=== PATIENT | female | born 1975 | race Caucasian/White ===

== ENCOUNTER 2021-04-13 10:15 | Emergency (ER) | payer OTHER ==
[~2021-04-13] VITALS: Ht 154.9 cm; Wt 90.7 kg
[~2021-04-13 10:15] MED LIST: ALLERGY10 M1 PO; IBUPROFEN600 MG PO; METFORMIN HCL1000 MG PO
--- OUTSIDE RECORDS SUMMARY | 2021-04-13 10:18 | XMS ---
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 Alyssa has no Care Guidelines for this patient. [place] VISIT COUNT (12 MO.) 1 RUSTY Grady TOTAL 1 NOTE: Visits indicate total known visits. ED/C VISIT TRACKING (12 MO.) 04/13/2021 10:16 [facility] [place] TYPE: Emergency COMPLAINT: - LOWER BACK PAIN INPATIENT VISIT TRACKING (12 MO.) No inpatient visits to display in this time frame [email or web address]
[2021-04-13] MEDS ORDERED: LISINOPRIL2.5 MG PO (11:15)
[2021-04-13] MEDS ORDERED: GABAPENTIN100 MG PO (11:15)
[2021-04-13] MEDS ORDERED: LEVOTHYROXINE25 MCG PO (11:15)
[2021-04-13] MEDS ORDERED: LORATADINE10 MG PO (11:15)
[2021-04-13] MEDS ORDERED: PIOGLITAZONE HC15 MG PO (11:16)
[2021-04-13] MEDS ORDERED: PSEUDOEPHEDRIN120 MG PO (11:16)
[2021-04-13] MEDS ORDERED: ONDANSETRON ODT4 MG PO (11:17)
[2021-04-13] MEDS ORDERED: FLUTICASONE PRO16 GM NAS (11:17)
[2021-04-13] MEDS ORDERED: PERCOCET 7.5-31 EACH PO (16:57)
[2021-04-13] MEDS ORDERED: ONDANSETRON ODT8 MG PO (16:57)
== END 2021-04-13 17:23 | disposition home or self-care (01) ==
LOC: ED 10:15
DX: M54.42 Lumbago with sciatica, left side (principal); E11.9 Type 2 diabetes mellitus without complications; J45.909 Unspecified asthma, uncomplicated; Z88.5 Allergy status to narcotic agent; Z79.899 Other long term (current) drug therapy; Z79.84 Long term (current) use of oral hypoglycemic drugs
CPT/HCPCS: 72148; 96372; 99283-25; A9270; J1170

== ENCOUNTER 2021-07-27 08:47 | Emergency (ER) | payer OTHER ==
[~2021-07-27] VITALS: Ht 154.9 cm; Wt 92.8 kg
[~2021-07-27 08:47] MED LIST changes: +FLUTICASONE PRO16 GM NAS; +GABAPENTIN100 MG PO; +LEVOTHYROXINE25 MCG PO; +LISINOPRIL2.5 MG PO; +LORATADINE10 MG PO; +ONDANSETRON ODT4 MG PO; +ONDANSETRON ODT8 MG PO; +PERCOCET 7.5-31 EACH PO; +PIOGLITAZONE HC15 MG PO; +PSEUDOEPHEDRIN120 MG PO
--- OUTSIDE RECORDS SUMMARY | 2021-07-27 08:50 | XMS ---
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 E[facility] VISIT COUNT (12 MO.) 2 RUSTY Grady TOTAL 2 NOTE: Visits indicate total known visits. 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
== END 2021-07-27 10:09 | disposition home or self-care (01) ==
LOC: ED 08:47
DX: S06.0X9A Concussion with loss of consciousness of unspecified duration, initial encounter (principal); W22.8XXA Striking against or struck by other objects, initial encounter; E11.9 Type 2 diabetes mellitus without complications; J45.909 Unspecified asthma, uncomplicated; Z88.5 Allergy status to narcotic agent; Z79.899 Other long term (current) drug therapy; Z79.84 Long term (current) use of oral hypoglycemic drugs
CPT/HCPCS: 99283; A9270

== ENCOUNTER 2023-09-30 22:55 | Emergency (ER) | payer OTHER ==
[~2023-09-30] VITALS: Ht 154.9 cm; Wt 87.3 kg
[2023-09-30] MEDS ORDERED: TRULICITY3 MG/0.5 M SQ (23:10)
[2023-09-30] MEDS ORDERED: ACTOS15 MG (23:10)
[2023-10-01] MEDS ORDERED: HYDROCODON-ACE1 EA10 PO (01:30)
[2023-10-01 02:14] VITALS: BP 115/71
== END 2023-10-01 02:14 | disposition home or self-care (01) ==
LOC: ED 22:55
DX: S76.012A Strain of muscle, fascia and tendon of left hip, initial encounter (principal); S80.02XA Contusion of left knee, initial encounter; S80.01XA Contusion of right knee, initial encounter; E11.9 Type 2 diabetes mellitus without complications; W18.30XA Fall on same level, unspecified, initial encounter
CPT/HCPCS: 36415; 72220; 73502; 73560; 84703; 96374; 96375; 96376; 99283-25; A9270; J1885; J2270; J2405